=== PATIENT | female | born 2005 | race Caucasian/White ===

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

== ENCOUNTER 2024-11-30 09:13 | Emergency (ER) | payer MEDICAID ==
[~2024-11-30] VITALS: Ht 177.8 cm; Wt 110.0 kg
[2024-11-30 09:35] VITALS: TEMP 37.2; O2SAT 99
[2024-11-30 10:00] LABS: CLARITY URINE CLEAR (CLEAR); COLOR URINE YELLOW (YELLOW); GLUCOSE URINE NEGATIVE (NEGATIVE); KETONES URINE NEGATIVE (NEGATIVE); LEUKOCYTE ESTERASE URINE 3+ (NEGATIVE); NITRITE URINE NEGATIVE (NEGATIVE); OCCULT BLOOD URINE NEGATIVE (NEGATIVE); PH URINE 7.0 (4.5-8.0); PROTEIN URINE NEGATIVE (NEGATIVE); SPECIFIC GRAVITY URINE 1.019 (1.005-1.030); UROBILINOGEN URINE 0.2 E.U./dL (0.2-1.0)
[2024-11-30 10:24] LABS: BASOPHILS % 0.3 % (0.0-2.0); EOSINOPHILS % 2.1 % (0.0-5.0); HEMATOCRIT. 37.6 % (36.0-48.0); HEMOGLOBIN. 12.6 g/dL (12.0-16.0); LYMPHOCYTES % 24.9 % (20.0-50.0); MEAN PLATELET VOLUME 8.8 fl (7.4-10.4); MONOCYTES % 6.4 % (2.0-8.0); NEUTROPHILS % 66.3 % (40.0-76.0); PLATELET 209 x1000/uL (130-400); RED BLOOD CELL COUNT 4.34 mill/uL (4.2-5.4); RED CELL DISTRIBUTION WIDTH 13.8 % (11.6-14.6)
[2024-11-30] MEDS: ONDANSETRON 4MG ODT PO ONE (10:27)
[2024-11-30] MEDS: ACETAMINOPHEN 325MG TABLET PO ONE (10:27)
[2024-11-30 10:33] LABS: CREATININE 0.7 mg/dL (0.6-1.0)
[2024-11-30 10:34] LABS: UREA NITROGEN BLOOD 8 mg/dL (9-23)
[2024-11-30 10:35] LABS: ASPARTATE AMINOTRANSFERASE 11 IU/L (<34)
[2024-11-30 10:36] LABS: BILIRUBIN DIRECT 0.2 mg/dL (<=3.0); BILIRUBIN TOTAL 0.5 mg/dL (0.1-1.0); PROTEIN TOTAL 6.6 g/dL (6.0-8.3)
[2024-11-30 10:44] LABS: BACTERIA URINE 2+; RBC URINE 0-2 /hpf (0-2); SQUAMOUS EPITHELIAL CELL URINE 1+ /lpf (RARE/1+); WBC URINE 50-100 /hpf (0-2); YEAST URINE NONE SEEN
[2024-11-30 10:47] LABS: HCG SCREEN POSITIVE
[2024-11-30] MEDS ORDERED: AMOX1TAB16 MT (12:45)
[2024-11-30] MEDS ORDERED: METO-293 MT (12:45)
[2024-11-30 13:39] VITALS: BP 116/76; PULSE 81; RESP 12; O2SAT 95
== END 2024-11-30 13:44 | disposition home or self-care (01) ==
LOC: ER 09:13
DX: R10.30 Lower abdominal pain, unspecified (principal); R11.2 Nausea with vomiting, unspecified; R19.7 Diarrhea, unspecified; N39.0 Urinary tract infection, site not specified; R03.0 Elevated blood-pressure reading, without diagnosis of hypertension; F10.90 Alcohol use, unspecified, uncomplicated; J45.909 Unspecified asthma, uncomplicated; Z32.01 Encounter for pregnancy test, result positive; Y90.9 Presence of alcohol in blood, level not specified
CPT/HCPCS: 99284; 74176; 76801; 80076; 80048; 81003; 81025; 84703; 84702; 83690; 85025; 87086; 87186; 87077; 36415; 76817; Q0162

== ENCOUNTER 2025-02-04 21:32 | Emergency (ER) | payer MEDICAID, OTHER ==
[~2025-02-04] VITALS: Ht 177.8 cm; Wt 136.5 kg
[~2025-02-04 21:32] MED LIST: AMOX1TAB16 MT; METO-293 MT
[2025-02-04 22:10] VITALS: O2SAT 98
[2025-02-04 23:16] LABS: CLARITY URINE CLEAR (CLEAR); COLOR URINE YELLOW (YELLOW); GLUCOSE URINE NEGATIVE (NEGATIVE); KETONES URINE NEGATIVE (NEGATIVE); LEUKOCYTE ESTERASE URINE NEGATIVE (NEGATIVE); NITRITE URINE NEGATIVE (NEGATIVE); OCCULT BLOOD URINE NEGATIVE (NEGATIVE); PH URINE 6.5 (4.5-8.0); PROTEIN URINE NEGATIVE (NEGATIVE); SPECIFIC GRAVITY URINE 1.022 (1.005-1.030); UROBILINOGEN URINE 1.0 E.U./dL (0.2-1.0)
[2025-02-04] MEDS: SODIUM CHLORIDE 0.9% 1,000 ML IV ONE (23:54)
[2025-02-05 00:08] LABS: BASOPHILS % 0.4 % (0.0-2.0); EOSINOPHILS % 0.6 % (0.0-5.0); HEMATOCRIT. 37.3 % (36.0-48.0); HEMOGLOBIN. 12.5 g/dL (12.0-16.0); LYMPHOCYTES % 18.5 % (20.0-50.0); MEAN PLATELET VOLUME 8.6 fl (7.4-10.4); MONOCYTES % 5.3 % (2.0-8.0); NEUTROPHILS % 75.2 % (40.0-76.0); PLATELET 228 x1000/uL (130-400); RED BLOOD CELL COUNT 4.25 mill/uL (4.2-5.4); RED CELL DISTRIBUTION WIDTH 13.7 % (11.6-14.6)
[2025-02-05 00:31] LABS: CREATININE 0.5 mg/dL (0.6-1.0); UREA NITROGEN BLOOD < 5 mg/dL (9-23)
[2025-02-05 00:32] LABS: ASPARTATE AMINOTRANSFERASE 14 IU/L (<34); BILIRUBIN DIRECT < 0.1 mg/dL (<=3.0); BILIRUBIN TOTAL 0.2 mg/dL (0.1-1.0); PROTEIN TOTAL 6.5 g/dL (6.0-8.3)
[2025-02-05 00:34] LABS: HCG SCREEN POSITIVE
[2025-02-05 01:25] VITALS: BP 115/76; PULSE 92; RESP 18; TEMP 36.7; O2SAT 100
== END 2025-02-05 01:25 | disposition home or self-care (01) ==
LOC: ER 21:32 → CMPBEDREQ 02-05 07:29
DX: O26.891 Other specified pregnancy related conditions, first trimester (principal); R10.20 Pelvic and perineal pain unspecified side; J45.909 Unspecified asthma, uncomplicated; Z3A.14 14 weeks gestation of pregnancy; Z88.0 Allergy status to penicillin
CPT/HCPCS: 99284; 96360; 76801; 80076; 80048; 81003; 81025; 84703; 84702; 83690; 85025; 36415; 93005; J7030; 86850; 86900

== ENCOUNTER 2025-02-17 15:27 | Emergency (ER) | payer OTHER ==
[~2025-02-17] VITALS: Ht 175.3 cm; Wt 127.0 kg
[2025-02-17 15:30] VITALS: O2SAT 99
[2025-02-17] MEDS: SODIUM CHLORIDE 0.9% 1,000 ML IV ONE ×2 (15:59→18:47)
[2025-02-17] MEDS: ACETAMINOPHEN 500MG TABLET PO ONE (16:00)
[2025-02-17 17:04] LABS: HEMATOCRIT. 37.4 % (36.0-48.0); HEMOGLOBIN. 12.9 g/dL (12.0-16.0); MEAN PLATELET VOLUME 9.6 fl (7.4-10.4); PLATELET 182 x1000/uL (130-400); RED BLOOD CELL COUNT 4.30 mill/uL (4.2-5.4); RED CELL DISTRIBUTION WIDTH 13.6 % (11.6-14.6)
[2025-02-17 17:05] LABS: INFLUENZA TYPE A Presumptive Negative (Pres. Neg.)
[2025-02-17 17:06] LABS: INFLUENZA TYPE B Presumptive Negative (Pres. Neg.); RESPIRATORY SYNCYTIAL VIRUS Not Detected (Not Detectd)
[2025-02-17 17:11] LABS: CREATININE 0.6 mg/dL (0.6-1.0); UREA NITROGEN BLOOD 6 mg/dL (9-23)
[2025-02-17 17:13] LABS: ASPARTATE AMINOTRANSFERASE 13 IU/L (<34); BILIRUBIN DIRECT 0.1 mg/dL (<=3.0); BILIRUBIN TOTAL 0.5 mg/dL (0.1-1.0); PROTEIN TOTAL 7.0 g/dL (6.0-8.3)
[2025-02-17] MEDS: ONDANSETRON HCL 4MG/2ML INJ IV ONE (18:00)
[2025-02-17] MEDS: PYRIDOXINE 100 MG/ML 1ML IV ONE (18:00)
[2025-02-17 21:12] LABS: EOSINOPHILS % MANUAL 1.0 % (0.0-5.0); LYMPHOCYTES % MANUAL 3.0 % (20.0-60.0); MONOCYTES % MANUAL 4.0 % (2.0-8.0); NEUTROPHILS % MANUAL 92.0 % (45.0-75.0); PLATELET ESTIMATE NORMAL
[2025-02-17 21:14] LABS: COLOR URINE YELLOW (YELLOW); GLUCOSE URINE NEGATIVE (NEGATIVE); KETONES URINE 4+ (NEGATIVE); LEUKOCYTE ESTERASE URINE NEGATIVE (NEGATIVE); NITRITE URINE NEGATIVE (NEGATIVE); OCCULT BLOOD URINE NEGATIVE (NEGATIVE); PH URINE 6.5 (4.5-8.0); PROTEIN URINE TRACE (NEGATIVE); SPECIFIC GRAVITY URINE 1.024 (1.005-1.030); UROBILINOGEN URINE 1.0 E.U./dL (0.2-1.0)
[2025-02-17 21:49] LABS: CLARITY URINE SL HAZY (CLEAR)
[2025-02-17 21:50] LABS: RBC URINE NONE SEEN /hpf (0-2); WBC URINE 0-2 /hpf (0-2)
[2025-02-17 21:51] LABS: BACTERIA URINE TRACE; SQUAMOUS EPITHELIAL CELL URINE FEW /lpf (RARE/1+)
[2025-02-17] MEDS: ACETAMINOPHEN 1000MG/100ML 100 ML IV ONE (22:00)
[2025-02-17] MEDS ORDERED: ONDA-239 PO (23:46)
[2025-02-18 00:10] VITALS: BP 119/79; PULSE 89; RESP 18; TEMP 36.8; O2SAT 100
== END 2025-02-18 00:20 | disposition home or self-care (01) ==
LOC: ER 15:27 → CMPBEDREQ 02-18 07:20
DX: O21.1 Hyperemesis gravidarum with metabolic disturbance (principal); O98.512 Other viral diseases complicating pregnancy, second trimester; J45.909 Unspecified asthma, uncomplicated; Z88.0 Allergy status to penicillin; Z3A.15 15 weeks gestation of pregnancy; Z20.822 Contact with and (suspected) exposure to COVID-19
CPT/HCPCS: 99285; 96365; 96361; 76700; 76805; 96375; 71045; 96366; 87426; 80076; 80048; 81003; 85025; 87420; 87804 ×2; 36415; J2405; J3415; J7030; J0131

== ENCOUNTER 2025-03-09 12:27 | Emergency (ER) | payer OTHER ==
[~2025-03-09] VITALS: Ht 172.7 cm; Wt 132.0 kg
[~2025-03-09 12:27] MED LIST changes: +ONDA-239 PO
[2025-03-09 12:34] VITALS: O2SAT 99
[2025-03-09] MEDS ORDERED: DIPHENHYDRAMINE 50MG/ML VIAL IV ONE (13:00)
[2025-03-09 13:08] VITALS: BP 115/58; PULSE 95; RESP 12; TEMP 36.8; O2SAT 99
[2025-03-09 13:24] LABS: BASOPHILS % 0.3 % (0.0-2.0); EOSINOPHILS % 0.4 % (0.0-5.0); HEMATOCRIT. 33.9 % (36.0-48.0); HEMOGLOBIN. 11.4 g/dL (12.0-16.0); LYMPHOCYTES % 11.4 % (20.0-50.0); MEAN PLATELET VOLUME 8.6 fl (7.4-10.4); MONOCYTES % 5.8 % (2.0-8.0); NEUTROPHILS % 82.1 % (40.0-76.0); PLATELET 189 x1000/uL (130-400); RED BLOOD CELL COUNT 3.86 mill/uL (4.2-5.4); RED CELL DISTRIBUTION WIDTH 13.6 % (11.6-14.6)
[2025-03-09] MEDS: METOCLOPRAMIDE HCL 10MG/2ML VIAL IV ONE (13:26)
[2025-03-09] MEDS: DIPHENHYDRAMINE 50MG/ML VIAL IV NR (13:26)
[2025-03-09] MEDS: SODIUM CHLORIDE 0.9% 1,000 ML IV ONE (13:27)
[2025-03-09 13:32] LABS: INR 0.9
[2025-03-09 13:41] LABS: UREA NITROGEN BLOOD < 5 mg/dL (9-23)
[2025-03-09 13:42] LABS: PROTEIN TOTAL 6.2 g/dL (6.0-8.3); TROPONIN I HIGH SENSITIVITY < 4 ng/L (3.0-34)
[2025-03-09 13:43] LABS: ASPARTATE AMINOTRANSFERASE 9 IU/L (<34); BILIRUBIN DIRECT 0.1 mg/dL (<=3.0); BILIRUBIN TOTAL 0.4 mg/dL (0.1-1.0)
[2025-03-09 13:44] LABS: CREATININE 0.4 mg/dL (0.6-1.0)
== END 2025-03-09 14:06 | disposition left against medical advice (07) ==
LOC: ER 12:27
DX: O26.892 Other specified pregnancy related conditions, second trimester (principal); O21.9 Vomiting of pregnancy, unspecified; J45.909 Unspecified asthma, uncomplicated; Z53.29 Procedure and treatment not carried out because of patient's decision for other reasons; Z88.0 Allergy status to penicillin; Z79.899 Other long term (current) drug therapy; Z3A.18 18 weeks gestation of pregnancy
CPT/HCPCS: 80076; 80048; 87430; 83690; 85025; 85610; 84484; 87070; 36415; 93005; 96361; 96374; 96375; 99284; J1200; J2765; J7030; Z7610 ×3